=== PATIENT | female | born 1940 | race African-American/Black ===

== ENCOUNTER 2016-10-29 09:17 | Inpatient (IN) ==
[2016-10-29] MEDS ORDERED: DUONEB (A & A) ONE (10:02)
[2016-10-29] MEDS ORDERED: DUONEB (A & A) INH ONE (10:11)
[2016-10-29 10:16] LABS: BE 4.2 mmoll (-3.0-3.0); BLOOD TYPE ARTERIAL; DRAW SITE R RADIAL; METHB 1.3 % (0.0-1.5); O2(CT) 14.7 mL/dL (15.0-23.0); PCO2(98.6) 23 mmHg (35-45); SAMPLE BLOOD; SAO2 93.1 % (95.0-100.0); THB 11.6 g/dL (11.5-17.4)
[2016-10-29 10:20] LABS: ALLEN TEST YES; MODALITY ROOM AIR
[2016-10-29 10:21] LABS: PO2(98.6) 48 mmHg (60-100); pH(98.6) 7.63 (7.35-7.45)
--- NOTE | 2016-10-29 10:23 | PROVIDER DOCUMENTATION ---
HPI-Respiratory General - General Chief Complaint: Shortness of Breath Stated Complaint: CONGESTION,NO APPETITIE Time Seen by Provider: 10/29/16 10:00 Allergies/Adverse Reactions: Patient Allergies Allergy/AdvReac Type Severity Reaction Status Date / Time No Known Allergies Allergy Verified 10/29/16 09:31 Home Medications: Home Medication List Medication Instructions Recorded Confirmed Last Taken Type Montelukast [Singulair] 10 mg PO DAILY 04/11/12 05/21/16 05/20/16 08:00 History Theophylline Anhydrous 400 mg PO QAM 04/11/12 05/21/16 05/21/16 05:00 History [Theophylline] Levothyroxine [Synthroid] 50 microgm PO DAILY 06/09/13 05/21/16 05/21/16 05:00 History Meclizine HCl 12.5 mg PO TID PRN 08/02/14 05/21/16 05/20/16 21:00 History Diltiazem HCl [Cartia Xt] 240 mg PO DAILY 10/02/14 05/21/16 05/21/16 05:00 History Spironolactone 25 mg PO DAILY 10/02/14 05/21/16 05/21/16 05:00 History Furosemide 40 mg PO DAILY 03/21/15 05/21/16 05/21/16 05:00 History Calcium Carbonate/Vitamin D3 1 each PO DAILY 05/18/16 05/21/16 05/21/16 05:00 History [Calcium 600 + Vit D Tablet] Diclofenac Sodium 50 mg PO BID 05/18/16 05/21/16 05/20/16 21:00 History LISINOpril [Prinivil] 20 mg PO DAILY 05/18/16 05/21/16 05/20/16 08:00 History Multivit-Min/FA/Lycopen/Lutein 1 tab PO DAILY 05/18/16 05/21/16 05/20/16 08:00 History [Centrum Silver Tablet] Theophylline E.r. [Getachew-24] 200 mg PO HS 05/18/16 05/21/16 05/20/16 21:00 History - History of Present Illness-Resp Nature of Presenting Problem: 76 YO BF with recent hx of knee replacement surgery in August presents with increasing SOB and low appetite. Saw her PCM on Tuesday, started on Brio inhaler but hasn't gotten better. Has bilateral leg swelling from CHF but son says it is improved today. Hasn't taken any of her medication today, just came to the ER. Says she hasn't eaten barely anything in a month, only drinks water to take her medication. Has lost #30 since her surgery at the end of August. Quality of Pain: reports: pressure, tightness Severity in ED: reports: moderate Onset/Duration: reports: 1 week ago Timing: reports: still present, getting worse Cough Quality/Degree: reports: moderate, productive cough, sputum Episode Frequency: frequent episodes Current Respiratory Medication Therapy: Initiated steroid inhaler, Initiated theophylline, Initiated singulair Modifying Factors: improves with: antibiotics, rest, sitting upright Associated Symptoms: reports: cough, shortness of breath. denies: chest pain/ soreness, dizziness, earache, facial pain, fever/chills, headache, heart racing , muscle/bodyaches, nasal congestion, sore throat, sweaty, wheezing Similar Symptoms Previously?: Yes Recently seen or treated by another doctor?: Yes (Saw PCM on Tuesday) Review of Systems - Adult - REVIEW OF SYSTEMS - ADULT Constitutional: denies: chills, fever Eyes: denies: decreased vision, blurred vision, double vision Ears, Nose, Mouth & Throat: denies: ear pain, epistaxis, sinus problem, throat pain, throat swelling Cardiovascular: reports: orthopnea. denies: chest pain, syncope Respiratory: reports: cough, excessive sputum production, shortness of breath. denies: wheezing Gastrointestinal: denies: abdominal pain, diarrhea, nausea, vomiting Integumentary: denies: itching, rash, skin sores/ulcer Neurological: denies: dizziness/vertigo, headache/migraines Past History - Adult - PAST MEDICAL HISTORY-ADULT Review of Records: reports: Old Records Reviewed, Nursing Assessment Review, Medications Reviewed Major Childhood Illnesses: reports: denies history Cardiovascular: reports: CHF, HTN Respiratory: reports: asthma, COPD Musculoskeletal: reports: arthritis, other (gout) Neurological: reports: other (vertigo) Endocrine/Immune: reports: thyroid disorder - PRIOR SURGERIES/PROCEDURES Surgical/Procedure History: reports: recent surgery (pacemaker), pacemaker, hysterectomy, other (cataract removal) - PRIOR HOSPITALIZATIONS Prior Hospitalizations: reports: none - IMMUNIZATION STATUS Childhood Immunizations: See Nurse Assessment Flu Vaccine: UTD - FAMILY HISTORY Family History: reviewed, not pertinent Physical Exam-General - PHYSICAL EXAM-ADULT Initial Vital Signs Reviewed: Yes - CONSTITUTIONAL General Appearance: alert, moderate distress - EYES Eyes: PERRL/EOMI, pink conjunctivae. negative: sclera injected, scleral icterus - HEAD, EARS, NOSE, MOUTH & THROAT HENMT: normocephalic/atraumatic, other (dry mucous membranes but is spitting up clear mucus) - NECK Neck: full range of motion, supple, normal inspection - RESPIRATORY Respiratory: lungs clear, normal breath sounds, no respiratory distress, no accessory muscle use. negative: crackles, rales, rhonchi, stridor, wheezing - CARDIOVASCULAR Cardiovascular: regular rate, rhythm, no gallop, no JVD, no murmur. negative: no edema (bilateral lower leg edema, 1+ pitting left leg) - GASTROINTESTINAL (ABDOMEN) Abdominal Exam: normal bowel sounds, non tender, soft. negative: distended, guarding, rigid, rebound, tenderness - MUSCULOSKELETAL Extremity: non-tender. negative: no pedal edema Peripheral Pulses: radial (R): 2+, radial (L): 2+, dorsalis-pedis (R): 2+, dorsalis-pedis (L): 2+ - SKIN Integumentary: normal color, warm/dry - NEUROLOGIC Neurologic: community health nursing director II-XII nml as tested, grossly normal - PSYCHIATRIC Psych/Mental Status: normal mood/affect, normal thought content, normal thought process Progress - PLAN OF CARE/RESULTS Progress/Plan/Lab Results: Vital Signs - 8 hr 10/29/16 09:19 10/29/16 10:11 10/29/16 10:25 Pulse Rate 121 H 128 H Respiratory Rate 26 H 38 H Blood Pressure 144/81 O2 Sat by Pulse Oximetry 99 97 10/29/16 11:25 10/29/16 12:15 10/29/16 15:18 Pulse Rate 126 H 119 H 110 H Respiratory Rate 22 29 H 25 H Blood Pressure 149/95 147/86 149/89 O2 Sat by Pulse Oximetry 96 96 97 10/29/16 16:22 Pulse Rate 109 H Respiratory Rate 18 Blood Pressure 165/95 O2 Sat by Pulse Oximetry 96 Laboratory Results - last 24 hr 10/29/16 10/29/16 10/29/16 09:45 10:28 10:28 WBC 3.85 L RBC 4.53 Hgb 11.4 L Hct 37.2 MCV 82.1 MCH 25.2 L MCHC 30.6 L RDW Std Deviation 17.7 H Plt Count 368 MPV 11.3 H Immature Gran % (Auto) 0.5 Neut % (Auto) 58.2 Lymph % (Auto) 20.5 Wood % (Auto) 19.0 H Eos % (Auto) 0.8 Baso % (Auto) 1.0 H Immature Gran # (Auto) 0.02 Neut # (Auto) 2.24 Lymph # (Auto) 0.79 L Wood # (Auto) 0.73 H Eos # (Auto) 0.03 Baso # (Auto) 0.04 D-Dimer Specimen Type ARTERIAL Sample Site R RADIAL pH 7.63 H* pCO2 23 L pO2 48 L* HCO3 28.0 H Base Excess 4.2 H Oxyhemoglobin 90.0 L ABG O2 Sat (Calculated) 14.7 L ABG O2 Saturation 93.1 L ABG Carboxyhemoglobin 2.00 ABG Methemoglobin 1.3 Duglas Test YES A-a O2 Difference 73.0 Total Hemoglobin 11.6 Lactate 2.00 Blood Gas Modality ROOM AIR FiO2 % 21.0 Sodium 139 Potassium 2.8 L Chloride 101 Carbon Dioxide 21 L Anion Gap 16 BUN 14 Creatinine 1.3 H Estimated GFR/1.73 m2 40 BUN/Creatinine Ratio 11 Glucose 111 H Calculated Osmolality 279 Calcium 10.5 H Total Bilirubin 0.40 AST 16 ALT 8 L Alkaline Phosphatase 96 Kfs-X-Eyunfprchka Pept Total Protein 7.6 Albumin 4.2 Globulin 3.0 Albumin/Globulin Ratio 1.0 10/29/16 10/29/16 10/29/16 10:28 10:28 15:30 WBC RBC Hgb Hct MCV MCH MCHC RDW Std Deviation Plt Count MPV Immature Gran % (Auto) Neut % (Auto) Lymph % (Auto) Wood % (Auto) Eos % (Auto) Baso % (Auto) Immature Gran # (Auto) Neut # (Auto) Lymph # (Auto) Wood # (Auto) Eos # (Auto) Baso # (Auto) D-Dimer 1.96 H Specimen Type Sample Site pH pCO2 pO2 HCO3 Base Excess Oxyhemoglobin ABG O2 Sat (Calculated) ABG O2 Saturation ABG Carboxyhemoglobin ABG Methemoglobin Duglas Test A-a O2 Difference Total Hemoglobin Lactate Blood Gas Modality FiO2 % Sodium 141 Potassium 3.3 L D Chloride 105 Carbon Dioxide 23 L Anion Gap 13 BUN 12 Creatinine 1.2 H Estimated GFR/1.73 m2 44 BUN/Creatinine Ratio 10 Glucose 95 Calculated Osmolality 281 Calcium 9.9 Total Bilirubin 0.30 AST 13 ALT 7 L Alkaline Phosphatase 89 Mcj-J-Enofbohcxed Pept 136 Total Protein 6.9 Albumin 3.9 Globulin 3.0 Albumin/Globulin Ratio 1.0 Orders Category Date Time Status CHEST-PORTABLE [RAD] Stat Exams 10/29/16 10:14 Completed LUNG SCAN / VQ [NM] Stat Exams 10/29/16 11:15 Completed ABG [RESP] Routine Lab 10/29/16 09:45 Completed CBC WITH DIFF [HEME] Stat Lab 10/29/16 10:28 Completed CMP [COMPREHENSIVE METABOLIC PANEL] [CHEM] Stat Lab 10/29/16 15:30 Completed COMPREHENSIVE METABOLIC PANEL [CHEM] Stat Lab 10/29/16 10:28 Completed Ddimer [D-DIMER PL] [COAG] Stat Lab 10/29/16 10:28 Completed UA NIMS W/REFLEX CULT PL [URINALYSIS] Stat Lab 10/29/16 16:13 Ordered pro-bnp [PRO B-NATRIURETIC PEPTIDE] Stat Lab 10/29/16 10:28 Completed 0.9% Sodium Chloride Inj [Ns] 1,000 ml Med 10/29/16 11:15 Discontinued IV 999 mls/hr Albuterol 2.5MG/Ipratrop 0.5MG [Duoneb (A & A)] Med 10/29/16 10:02 Discontinued 3 ml .ROUTE .STK-MED ONE Albuterol 2.5MG/Ipratrop 0.5MG [Duoneb (A & A)] Med 10/29/16 10:11 Discontinued 3 ml INH NOW ONE Hydrocodone/APAP 7.5 mg/325 mg [[place]-7.5] Med 10/29/16 12:24 Discontinued 1 each PO NOW ONE Potassium Chloride E.r. [Klor-Con] Med 10/29/16 11:14 Discontinued 60 meq PO NOW ONE Aerosol Treatments Stat Oth 10/29/16 10:11 Completed Oxygen Device Urgent Oth 10/29/16 10:24 Completed Venous U/S Bilateral Legs Stat Ther 10/29/16 11:15 Completed Result Diagrams: 07/14/17 10:28 10/29/16 15:30 - REASSESSMENT Reassessment #1 Time Reassessed: 11:17 (Pt has low K+, will give oral potassium. Also has elevated Cr, hasn't had much fluids recently. Low GFR. Elevated D Dimer. Discussed with Dr Curry, recommends bilateral leg venous doppler and VQ scan as renal function is impaired. ) Reassessment #2 Time Reassessed: 13:02 (NEG Bilat DVT. Pt was feeling nauseous and having pain in her leg that she had knee replacement. ) Reassessment #3 Time Reassessed: 16:35 (Discussed with Dr. Curry, as pt has kypokalemia, SOB, alkalosis, poor intake. Discussed with pt and family. ) - CONSULTS/PCP/HOSPITALIST Notification #1 *Consult/PCP/Hospitalist*: Dr. Mcfarlane Time Discussed: 16:33 (For SOB, CHF, poor fluid/food intake, weight loss) Consult Disposition: Will see in ED, Admit Departure - Departure Date of Disposition Decision: 10/29/16 Time of Disposition Decision: 16:33 DIAGNOSIS: Shortness of breath, Poor fluid intake, Elevated d-dimer, Hypokalemia CHF (congestive heart failure) Qualifiers: Congestive heart failure type: unspecified congestive heart failure type Congestive heart failure chronicity: chronic Qualified Code(s): I50.9 - Heart failure, unspecified Disposition: ADMITTED INPATIENT 09 Certified Medical Emergency: Emergent Condition: Stable Referrals and Follow-Ups: Elias Whitmore [Primary Care Provider] - - Critical Care Note This patient required my direct & personal management of CC.: No Attestation - Physician/ RADHA Attestation Patient care was provided by Advanced Practice Provider:: Yes Advanced Practice Provider:: Yuniel Sánchez Advanced Practice Provider documentation review:: The Mid-level provider documentation, treatment plan and medical decision making was reviewed by the physician who agrees with all treatment and medical decision making by the MLP.
--- NOTE | 2016-10-29 10:28 | Diag Imaging Result Doc PS360 ---
EXAM: CHEST-PORTABLE HISTORY: SOB, hx CHF, recent surgery TECHNIQUE: Erect AP portable chest at 1012 COMMENT: There is fibrosis near the minor fissure on the right which has not changed since 05/18/2016. There is some apparent subsegmental platelike atelectasis over the lingula which is more conspicuous than on the previous study. Otherwise has been no significant change. IMPRESSION: Minimal subsegmental atelectasis. Electronically signed by Juan Luo 10/29/2016 10:26 AM
[2016-10-29 10:30] LABS: MANUAL DIFF NEEDED? NO
[2016-10-29 10:41] LABS: EOS# 0.03 X1000 (0.0-0.7); EOS% 0.8 % (0.0-10.0); HEMATOCRIT 37.2 % (37.0-47.0); HEMOGLOBIN 11.4 g/dL (12.0-16.0); IMM GRAN# 0.02 X1000 (0.0-0.04); IMM GRAN% 0.5 % (0.0-0.5); LYMPH# 0.79 X1000 (1.2-3.4); LYMPH% 20.5 % (20.5-51.1); MCH 25.2 PG (27-31); MCHC 30.6 g/dL (33-37); MCV 82.1 FL (81-99); MONO# 0.73 X1000 (0.11-0.59); MPV 11.3 FL (7.4-10.4); NEUT% 58.2 % (42.2-75.2); PLT 368 X1000 (130-400); RBC 4.53 XMIL (4.2-5.4)
[2016-10-29 11:05] LABS: ALBUMIN 4.2 g/dL (3.5-5.0); CALCIUM 10.5 mg/dL (8.8-10.2); POTASSIUM 2.8 mmol/L (3.5-5.1); TOTAL BILIRUBIN 0.4 mg/dL (0.20-1.00); TOTAL PROTEIN 7.6 g/dL (6.3-8.3)
[2016-10-29] MEDS ORDERED: KLOR-CON PO ONE (11:14)
[2016-10-29] MEDS ORDERED: NS 1,000 ML IV ONE (11:15)
[2016-10-29] MEDS ORDERED: NORCO-7.5 PO ONE (12:24)
--- NOTE | 2016-10-29 12:27 | Extremity Venous Study ---
EXAM: Venous U/S Bilateral Legs HISTORY: elevated d dimer, SOB TECHNIQUE: Compression venous ultrasound of the lower extremities with color Doppler COMMENT: The deep veins of both lower extremities are compressible and demonstrate color Doppler flow with augmentation. IMPRESSION: No evidence of deep venous thrombosis. Electronically signed by Juan Luo 10/29/2016 12:25 PM
[2016-10-29 15:54] LABS: ALBUMIN 3.9 g/dL (3.5-5.0); CALCIUM 9.9 mg/dL (8.8-10.2); POTASSIUM 3.3 mmol/L (3.5-5.1); TOTAL BILIRUBIN 0.3 mg/dL (0.20-1.00); TOTAL PROTEIN 6.9 g/dL (6.3-8.3)
--- NOTE | 2016-10-29 16:02 | Diag Imaging Result Doc PS360 ---
EXAM: LUNG SCAN / VQ HISTORY: elevated d dimer, SOB, leg swelling, elevated Cr TECHNIQUE: Ventilation/perfusion lung scan: 41.2 mCi of technetium 99m DTPA aerosol for the ventilation portion of the procedure and 6.1 mCi of technetium 99m MAA intravenously for the perfusion portion. COMMENT: There is no evidence of ventilation/perfusion mismatch. There are no absolute perfusion defects. IMPRESSION: Normal study. Electronically signed by Juan Luo 10/29/2016 4:00 PM
[2016-10-29] MEDS ORDERED: DUONEB (A & A) INH PRN (18:33)
[2016-10-29] MEDS ORDERED: ZOFRAN IV PRN (18:33)
[2016-10-29] MEDS: ROCEPHIN 1 GM/NS 1 GM/50 ML IVPB IV SCH (19:05)
[2016-10-29] MEDS: NS 1,000 ML IV SCH (19:05)
[2016-10-29] MEDS: TYLENOL PO PRN (19:26)
[2016-10-29] MEDS: SOLU-MEDROL IV SCH (19:26)
[2016-10-29] MEDS: DUONEB (A & A) INH SCH ×2 (19:34→23:05)
[2016-10-30 00:43] LABS: CLARITY CLEAR (CLEAR); COLOR YELLOW; URINE SOURCE CLEAN CATCH
[2016-10-30 00:44] LABS: BILIRUBIN URINE NEGATIVE (NEGATIVE); BLOOD URINE NEGATIVE (NEGATIVE); GLUCOSE URINE NEGATIVE (NEGATIVE)
[2016-10-30 00:45] LABS: LEUKOCYTES URINE 2+ (NEGATIVE); NITRITE URINE NEGATIVE (NEGATIVE); PROTEIN URINE TRACE mg/dL (NEGATIVE); UROBILINOGEN URINE NORMAL
[2016-10-30 00:47] LABS: URINE CULTURE PL NEEDED? YES; URINE EPITHELIAL CELLS <10 /HPF (<10); URINE RBC <10 /HPF (<10)
[2016-10-30] MEDS: TYLENOL PO PRN (01:28)
[2016-10-30] MEDS: SOLU-MEDROL IV SCH ×3 (02:09→18:40)
[2016-10-30] MEDS: DUONEB (A & A) INH SCH ×6 (02:37→22:59)
[2016-10-30 06:12] LABS: HEMATOCRIT 37.8 % (37.0-47.0); HEMOGLOBIN 11.4 g/dL (12.0-16.0); MCH 25.2 PG (27-31); MCHC 30.2 g/dL (33-37); MCV 83.6 FL (81-99); MPV 11.1 FL (7.4-10.4); RBC 4.52 XMIL (4.2-5.4)
[2016-10-30 06:42] LABS: CALCIUM 10.2 mg/dL (8.8-10.2); MAGNESIUM 1.8 mg/dL (1.5-2.7); TOTAL BILIRUBIN 0.3 mg/dL (0.20-1.00); TOTAL PROTEIN 7.3 g/dL (6.3-8.3)
[2016-10-30] MEDS: NS 1,000 ML IV SCH ×3 (08:19→21:12)
[2016-10-30] MEDS ORDERED: MILK OF MAGNESIA PO PRN (09:44)
[2016-10-30] MEDS ORDERED: CARDIZEM CD PO SCH (09:45)
[2016-10-30] MEDS ORDERED: SYNTHROID PO SCH (09:45)
[2016-10-30] MEDS: PRINIVIL PO SCH (10:22)
[2016-10-30] MEDS: ELIQUIS PO SCH ×2 (10:22→21:08)
[2016-10-30] MEDS: PRILOSEC PO SCH ×2 (10:22→21:09)
[2016-10-30] MEDS: THEO-DUR PO SCH ×2 (10:23→21:09)
[2016-10-30] MEDS: ULTRAM PO PRN ×2 (10:23→16:27)
[2016-10-30] MEDS: ZYLOPRIM PO SCH (10:24)
[2016-10-30] MEDS ORDERED: CARDIZEM CD PO ONE (11:15)
--- NOTE | 2016-10-30 12:01 | PROGRESS NOTE ---
DATE: 10/30/2016 SUBJECTIVE: Patient states that she is starting to feel a little bit better. She started to eat a little bit more this morning. Denies any chest pain or palpitations. Denies any GI or issues otherwise. OBJECTIVE: Vital Signs: Temperature 98.0 degrees, pulse 118 to 101, respiratory rate 18, blood pressure 154/78, and saturation 96% on 2L. General: Patient is awake, alert, and currently in no real respiratory distress. She is pleasant to talk with. Neck: Supple. Cardiovascular: Tachycardia. No appreciable murmurs. Chest: Clear. Abdomen: Soft. Extremities: Moves all extremities. Neurologic: No changes. ASSESSMENT: 1. Atrial fibrillation with rapid ventricular response. We will increase her diltiazem to 360. 2. Adult failure to thrive. 3. Hypothyroidism 4. Hypertension. PLAN: We will continue IV fluids today. We will continue to follow. Continue her on Rocephin, as she certainly could have a urinary tract infection that may be causing all of her failure to thrive and inability to eat. We will continue to encourage p.o. Further orders as needed. cc: Amari Johnson MD
[2016-10-30] MEDS: CARAFATE PO SCH ×3 (12:30→21:08)
--- NOTE | 2016-10-30 13:12 | HISTORY AND PHYSICAL ---
PRIMARY CARE PHYSICIAN: Dr. Elias Whitmore. CHIEF COMPLAINT: Congestion in my throat and I can not eat. HISTORY OF PRESENT ILLNESS: This is a 76-year-old female who presented to the emergency room complaining of increasing shortness of breath with chest congestion and no appetite. She states that this began after having a knee replacement at the end of August and she reportedly has lost 30 pounds since. She states that she has no appetite and that most solid foods come back up shortly after eating them so she just does not eat. She also states that she has some lower extremity edema that has been persistent. She developed a cough and dyspnea on exertion. She saw her primary care physician on Tuesday and was diagnosed with an upper respiratory infection and given amoxicillin. She has seen no change in symptoms. PAST MEDICAL HISTORY: Hypothyroid, hypertension, tachy-ronald syndrome status post pacemaker placement, hypothyroid. PAST SURGICAL HISTORY: Pacemaker placement, knee replacement. SOCIAL HISTORY: She denies alcohol, tobacco, or illicit drug use. ALLERGIES: No known drug allergies. HOME MEDICATIONS: A list will be obtained. REVIEW OF SYSTEMS: A 14 point review of systems is discussed with patient with pertinent positives stated in the HPI. She denied chest pain, palpitations, dizziness, syncope, PND, orthopnea, subjective fevers, chills, nausea, diarrhea, constipation, black or bloody vomitus, black or bloody stools, hematuria, dysuria. PHYSICAL EXAMINATION: GENERAL: This is a 76-year-old female who is sitting up in the bed, in no distress. VITAL SIGNS: Blood pressure is 154/70, with a heart rate of 101, respirations are 18, temperature is 98.6 degrees, with O2 saturations of 99% on 2 L nasal cannula. HEENT: Head is normocephalic, atraumatic. Pupils equal, round, react to light. EOMs are intact. Sclerae anicteric. Mucous membranes are moist. NECK: Supple. Trachea midline. CARDIOVASCULAR: Regular rate and rhythm. S1 and S2 are appreciated. No obvious murmur or gallop. GASTROINTESTINAL: Abdomen is soft, nontender, nondistended with bowel sounds in all 4 quadrants. EXTREMITIES: She does have nonpitting edema in bilateral lower extremities which is chronic. Calves are nontender. Pulses are palpable x4. NEUROLOGIC: She is alert and oriented x3. DIAGNOSTICS: 1. WBC is 3.8, with a hemoglobin of 11.4, hematocrit 37.2, and platelets of 368,000. D-dimer is 1.96. Sodium is 141, potassium 3.3, BUN is 12, with creatinine 1.2. Glucose is 95. 2. Lower extremity Doppler revealed no evidence of DVT. 3. V/Q lung scan revealed no evidence of ventilation-perfusion mismatch. There no absolute perfusion defects. ASSESSMENT AND PLAN: 1. Persistent cough. 2. Vomiting with weight loss, chronic. 3. Recent upper respiratory infection; failed outpatient treatment. 4. Hypokalemia. 5. Elevated D-dimer. 6. Hypothyroid. 7. History of hypertension. PLAN: She will be admitted to the hospital. Placed on telemetry. We will identify her home medications and continue as appropriate. We will use Rocephin IV every 24 hours. The patient states that she has significant reflux over the last 2-3 months lying down, having a bitter taste in her mouth, needing to cough and clear her throat. This also increases if she lies down shortly after eating. We will give Prilosec b.i.d., start Carafate, and have her sit up in a chair for meals and for a period after eating. DuoNeb q.4 hours with q.2 p.r.n. Further treatments pending hospital course. Dictated by SONNY Thomas for Amari Johnson MD cc: SONNY Thomas MD
[2016-10-30] MEDS ORDERED: CARDIZEM 100 MG/NS 100 MG/100 ML IVPB IV SCH (15:17)
--- NOTE | 2016-10-30 16:13 | EKG Report ---
Test Performed on : 10/30/2016 3:27:47 PM Test Reason : rhythm change Blood Pressure : / mmHG Vent. Rate : 158 BPM Atrial Rate : 109 BPM P-R Int : 202 ms QRS Dur : 146 ms QT Int : 328 ms P-R-T Axes : 068 -37 -10 degrees QTc Int : 531 ms Sinus tachycardia. with premature supraventricular complexes. and with frequent premature ventricula r complexes. Left axis deviation Right bundle branch block T wave abnormality, consider lateral ischemia Abnormal ECG When compared with ECG of 30-OCT-2016 15:26, (Unconfirmed) premature ventricular complexes. are now present premature supraventricular complexes. are now present Unconfirmed Result
[2016-10-30 17:31] LABS: CLARITY VERY CLOUDY (CLEAR); COLOR YELLOW; URINE CULTURE PL NEEDED? NO; URINE SOURCE CATH
[2016-10-30 17:32] LABS: BILIRUBIN URINE NEGATIVE (NEGATIVE); BLOOD URINE NEGATIVE (NEGATIVE); LEUKOCYTES URINE 1+ (NEGATIVE); NITRITE URINE NEGATIVE (NEGATIVE); PROTEIN URINE 1+(30 mg/dL) mg/dL (NEGATIVE); SP GRAVITY URINE 1.025; UROBILINOGEN URINE NORMAL
[2016-10-30 17:33] LABS: URINE EPITHELIAL CELLS >10 /HPF (<10); URINE RBC <10 /HPF (<10); URINE WBC <10 /HPF (<10)
[2016-10-30] MEDS: ROCEPHIN 1 GM/NS 1 GM/50 ML IVPB IV SCH (18:40)
[2016-10-30] MEDS: CARDIZEM PO SCH (21:08)
[2016-10-30] MEDS: REMERON PO SCH (21:08)
[2016-10-31] MEDS: SOLU-MEDROL IV SCH ×3 (02:25→21:26)
[2016-10-31] MEDS: CARDIZEM PO SCH ×4 (02:25→21:26)
[2016-10-31] MEDS: DUONEB (A & A) INH SCH ×6 (02:47→22:55)
[2016-10-31] MEDS: NS 1,000 ML IV SCH ×3 (05:13→17:41)
[2016-10-31] MEDS ORDERED: CARDIZEM CD PO SCH (09:00)
--- NOTE | 2016-10-31 09:13 | EKG Report ---
Test Performed on : 10/31/2016 09:05:49 AM Test Reason : arrhythmia Blood Pressure : / mmHG Vent. Rate : 092 BPM Atrial Rate : 092 BPM P-R Int : 160 ms QRS Dur : 140 ms QT Int : 400 ms P-R-T Axes : 028 -39 -17 degrees QTc Int : 494 ms Normal sinus rhythm. Left axis deviation Right bundle branch block Abnormal ECG When compared with ECG of 30-OCT-2016 15:27, (Unconfirmed) premature ventricular complexes. are no longer present premature supraventricular complexes. are no longer present Vent. rate has decreased BY 66 BPM Unconfirmed Result
[2016-10-31] MEDS: PRILOSEC PO SCH ×2 (09:28→21:25)
[2016-10-31] MEDS: CARAFATE PO SCH ×4 (09:28→21:26)
[2016-10-31] MEDS: ELIQUIS PO SCH ×2 (09:28→21:26)
[2016-10-31] MEDS: PRINIVIL PO SCH (09:29)
[2016-10-31] MEDS: SYNTHROID PO SCH (09:29)
[2016-10-31] MEDS: ZYLOPRIM PO SCH (09:29)
[2016-10-31 11:34] LABS: HEMOGLOBIN 11.1 g/dL (12.0-16.0); MCH 25.8 PG (27-31); MCHC 30.8 g/dL (33-37); MCV 83.7 FL (81-99); MPV 11.1 FL (7.4-10.4); RBC 4.3 XMIL (4.2-5.4)
[2016-10-31 11:43] LABS: CALCIUM 9.9 mg/dL (8.8-10.2); MAGNESIUM 1.9 mg/dL (1.5-2.7); POTASSIUM 3.7 mmol/L (3.5-5.1); TOTAL BILIRUBIN 0.2 mg/dL (0.20-1.00); TOTAL PROTEIN 6.6 g/dL (6.3-8.3)
--- NOTE | 2016-10-31 13:53 | PROGRESS NOTE ---
DATE: 10/31/2016 SUBJECTIVE: The patient notes that she is actually feeling a little bit better. Denies any chest pains or palpitations currently. Denies any nausea, vomiting. States that she is starting to feel as though she can eat a little bit better at this point. OBJECTIVE: Vital signs: Temperature 97, pulse 88, respiratory 20, BP 162/71, saturation 96% on 2 L. General: Patient awake, alert, oriented. She is currently in no respiratory distress. Very pleasant to talk with female. HEENT: Normocephalic, atraumatic. Neck: Supple. CV: Regular rate. Chest: Relatively clear. Abdomen: Soft. Extremities: Moves all extremities. Neurologic: No changes. LABS: Reviewed. CBC, CMP and TSH currently pending. Dysrhythmia. PLAN: The patient was noted in the ICU to have several episodes of ventricular tachycardia. Unfortunately this has not been captured on EKG, simply on a rhythm strip. We are continuing to follow. Hopefully if this is true they can capture it on a full 12 lead. Cardiology has been consulted to assist. Labs are currently pending. We will decrease her Solu-Medrol again today to q.12 and further orders as needed. Also will stop her tramadol as this certainly could be contributing to palpitations. cc: Amari Johnson MD
[2016-10-31] MEDS: THEO-DUR PO SCH ×2 (14:50→21:26)
[2016-10-31] MEDS: ROCEPHIN 1 GM/NS 1 GM/50 ML IVPB IV SCH ×2 (17:40→19:58)
[2016-10-31] MEDS: REMERON PO SCH (21:26)
[2016-11-01] MEDS: CARDIZEM PO SCH ×4 (02:06→20:25)
[2016-11-01] MEDS: DUONEB (A & A) INH SCH ×6 (02:40→22:45)
[2016-11-01] MEDS: CARAFATE PO SCH ×4 (06:37→20:25)
[2016-11-01] MEDS: NS 1,000 ML IV SCH (06:37)
[2016-11-01] MEDS: SYNTHROID PO SCH (06:37)
[2016-11-01] MEDS: PRILOSEC PO SCH ×2 (06:37→20:25)
[2016-11-01] MEDS: ELIQUIS PO SCH ×2 (09:08→20:25)
[2016-11-01] MEDS: SOLU-MEDROL IV SCH ×2 (09:08→20:26)
[2016-11-01] MEDS: THEO-DUR PO SCH ×2 (09:08→20:25)
[2016-11-01] MEDS: ZYLOPRIM PO SCH (09:08)
[2016-11-01] MEDS: PRINIVIL PO SCH (09:08)
--- NOTE | 2016-11-01 09:09 | PROGRESS NOTE ---
DATE: 11/01/2016 SUBJECTIVE: The patient notes that she is feeling much better today. She denies any chest pain, palpitations. Denies any GI or issues. States that she is starting to eat better as well. OBJECTIVE: Vital Signs: Reviewed. Temperature 97 degrees, pulse 73, respiratory 20, BP 160/74, saturation 100% on 2 L. General: Patient is awake, alert, currently in no real respiratory distress. She is pleasant to talk with. Neck: Supple. CV: Regular rate. Chest: Relatively clear, nonlabored. Abdomen: Soft. Extremities: Moves all extremities. Neurologic: No focal changes. Skin: Warm and dry. No rashes. ASSESSMENT: Patient is eating and drinking better. Cardiology has plans to have her pacemaker checked today. Hopefully she can discharge home later either today or tomorrow. We will transition her out of the ICU after her pacemaker check and continue to follow. cc: Amari Johnson MD
--- NOTE | 2016-11-01 10:16 | CONSULTATION ---
DATE OF CONSULTATION: 10/31/2016 CONSULTATION REQUESTED BY: Hospitalist Service. REASON FOR CONSULTATION: Arrhythmia, tachycardia. HISTORY: Ms. Osborn is a pleasant 76-year-old black female who is a patient of mine. She presented to the hospital at [facility] 2 days ago at about 10 a.m. in the morning, October 29, with complaints of recurrent and persistent cough associated with shortness of breath. The patient said that she had very poor appetite. She had been recuperating from a recent total knee replacement. She got really concerned about the way she was doing. Upon presentation they did a chest x-ray that showed minimal subsegmental atelectasis. They did a ventilation perfusion scan that showed no evidence of any perfusion deficits. Her blood work at the time of initial presentation showed a pH of 7.6, pCO2 of 23, pO2 was 48. Her initial sodium was 141, potassium 3.3, BUN 12, creatinine 1.2. She had an abnormal urinalysis. At any rate, the patient also received an EKG that shows activity of a pacemaker. There is a left axis deviation and right bundle branch block. The patient has been admitted to the hospital, has been placed on ceftriaxone, diltiazem, methylprednisolone, and she is doing better. She denies having any chest pain. Today they noted on her ekg monitor tech that she was having episodes of tachycardia or rapid heartbeat. The patient had noticed some episodes of palpitations at home, however, she was not bothered very much by them. On a recent report from her remote pacemaker device, they had noted what appeared to be pacemaker mediated tachycardia. PAST MEDICAL HISTORY: Her past history is positive for sick sinus syndrome. Back in July [address] [employer] Premium 2240 dual-chamber pacemaker. She had previous atrial flutter. She has had COPD/asthma. She has had a history of gout as well as osteoarthritis. PAST SURGICAL HISTORY: She has had hysterectomy, a cyst removed from the leg, and the pacemaker implantation in July 2014. SOCIAL HISTORY: She is a , retired. She has 2 children. She does not smoke or drink. FAMILY HISTORY: Coronary heart disease in some relatives. HOME MEDICATIONS: Home medications at the time of this admission included: 1. Levothyroxine 50 mcg daily. 2. Mirtazapine 30 mg at bedtime. 3. Meclizine 12.5 three times a day. 4. Allopurinol 300 mg daily. 5. Diltiazem 240 mg daily. 6. Lisinopril 20 mg daily. 7. Theophylline 300 twice a day. 8. Montelukast 10 mg daily. 9. Magnesium hydroxide 30 mL as needed. ALLERGIES: She reports no allergies. REVIEW OF SYSTEMS: The patient has just undergone total right knee replacement during the month of August in [facility] under Dr. Manuelito Sandhu. The patient went to rehab and she had a relatively uneventful recovery although, during the time when she was recuperating, she had no appetite and she has lost about 20 pounds over the past 2 months. Otherwise, nothing significant. PHYSICAL EXAMINATION: Vital signs: Blood pressure 162/71, temperature 97.2, pulse 82, respirations 21. General: She is awake, alert, in no distress. HEENT: Unremarkable. Chest: Sounds clear to auscultation and percussion. Cardiac: Heart sounds are regular and rhythmic. No gallop or murmur is noted. Abdomen: Nontender, soft, no masses, no hepatomegaly. Extremities: Show good pulses. There is trace brawny edema in the right leg with some dystrophic skin changes probably related to chronic venous stasis dermatitis. Neurologic: She is awake, alert and oriented x3. Moves four extremities. Follows commands. IMPRESSION: 1. Patient who presented with increasing cough, dyspnea, probably related to bronchitis on top of COPD, probably some component of COPD exacerbation. 2. Sick sinus syndrome status post permanent pacemaker implantation in July of 2014, [employer] device. 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 3. History of arthritis status post right total knee replacement recently, 2 months ago. 4. Patient with a history of being morbidly obese, hypothyroidism, and history of venous insufficiency. 5. She has history of hypertension and she has had an abnormal EKG with sinus rhythm, right bundle branch block, and a left anterior fascicular block. RECOMMENDATIONS: At this point in time, from the cardiology viewpoint, the patient seems to be stable. The arrhythmia is generally a nuisance and we will try to correct that by changing the settings of the pacemaker. We will contact the [employer] credit resolution representative in the morning and ask him to come to change the settings of her pacemaker. That should probably take care of the arrhythmia. In the meantime, I agree with giving her Cardizem. She was taking 240 when I saw her 2 months ago at the office. Otherwise, no specific changes. Thank you for the opportunity to participate in her evaluation. cc: Tae Davenport MD
[2016-11-01] MEDS: ROCEPHIN 1 GM/NS 1 GM/50 ML IVPB IV SCH (17:56)
[2016-11-01] MEDS: REMERON PO SCH (20:25)
[2016-11-02] MEDS: CARDIZEM PO SCH ×3 (02:36→14:07)
[2016-11-02] MEDS: DUONEB (A & A) INH SCH ×5 (02:39→19:00)
[2016-11-02] MEDS: SYNTHROID PO SCH (06:33)
[2016-11-02] MEDS: CARAFATE PO SCH ×3 (06:33→15:26)
[2016-11-02] MEDS: PRILOSEC PO SCH (06:33)
[2016-11-02] MEDS: ZYLOPRIM PO SCH (08:15)
[2016-11-02] MEDS: PRINIVIL PO SCH (08:16)
[2016-11-02] MEDS: ELIQUIS PO SCH (08:16)
[2016-11-02] MEDS: THEO-DUR PO SCH (08:16)
[2016-11-02] MEDS: SOLU-MEDROL IV SCH (10:05)
[2016-11-02 19:29] VITALS: BP 123/68
--- NOTE | 2016-11-03 11:34 | DISCHARGE SUMMARY ---
ADMISSION DATE: 10/29/2016 DISCHARGE DATE: 11/02/2016 DISCHARGE DIAGNOSES: 1. Chronic obstructive pulmonary disease exacerbation. 2. Arrhythmias associated with history of sick sinus syndrome. 3. Hypothyroidism. 4. Arthritis. 5. Hypertension. HISTORY AND HOSPITAL COURSE: Briefly, refer to complete H P dictated on the . She was admitted per Dr. Johnson with what was felt to be a COPD exacerbation. She was placed on Rocephin. She slowly clinically improved. Maintained on fluids. She did have atrial fibrillation with rapid ventricular response. She had been placed on Cardizem which was increased from 240 initially to 360 actually. Cardiology was consulted on the . She had episodes of ventricular tachycardia that was on a rhythm strip but not the EKG. Cardiology evaluated her and they just recommended maintaining on her regular Cardizem dose. She had been on 240 previously. They interrogated the pacemaker which I think was okay; there was no major issue. They just recommended continuing her Cardizem. She has been getting Cardizem 30 q.6 which is 120 daily and that is it. They had recommended going up to 360 but I guess the dose was adjusted. In any case, I just recommended going home on her regular dose of 240 daily. DISCHARGE MEDICATIONS: Allopurinol 300 daily, Apixaban 2.5 b.i.d., Caltrate 50 daily, Omnicef 300 p.o. b.i.d. for 7 days, Cartia XT 240 daily, Breo 100 daily, Lasix 40 p.r.n., Synthroid 50 daily, lisinopril 20 daily, milk of magnesia, Antivert 12.5 t.i.d., Remeron 30 at bedtime, Singulair 10 daily, MiraLAX 17 daily, prednisone taper, [place]w-Dur 300 daily, and Ultram p.r.n. DISCHARGE CONDITION: Stable. FOLLOW-UP: She will need to follow up with her PCP, Dr. Whitmore in 1 week, [facility]6 [facility], Dr. Davenport or her covering convention services manager. TIME SPENT: 35 minute discharge. cc: Lew Bhatt MD
== END 2016-11-02 20:45 | disposition home health service (06) ==
LOC: P.ED 09:17 → SUATTDRO 17:17 → P.MEDSURG 17:17 → P.ICU 10-30 15:15
PROVIDERS: ATTEND Internal Medicine

== ENCOUNTER 2018-09-22 10:30 | Inpatient (IN) ==
--- NOTE | 2018-09-22 11:12 | PROVIDER DOCUMENTATION ---
HPI-General Adult - General Chief Complaint: Weakness Stated Complaint: weakness Time Seen by Provider: 09/22/18 10:45 Source: patient Allergies/Adverse Reactions: Patient Allergies Allergy/AdvReac Type Severity Reaction Status Date / Time No Known Allergies Allergy Verified 09/14/18 19:26 Home Medications: Home Medication List Medication Instructions Recorded Confirmed Last Taken Type Montelukast [Singulair] 10 mg PO DAILY 04/11/12 02/09/18 05/20/16 08:00 History Levothyroxine [Synthroid] 50 microgm PO DAILY@0700 06/09/13 02/09/18 05/21/16 05:00 History Allopurinol [Zyloprim] 300 mg PO DAILY 10/29/16 02/09/18 10/28/16 08:00 History Meclizine [Antivert] 12.5 mg PO TID PRN 10/29/16 02/09/18 10/28/16 08:00 History Dabigatran [Pradaxa] 75 mg PO BID 01/22/18 02/09/18 Unknown History Diclofenac Sodium 1 applicatn TOP TID PRN PRN 01/22/18 02/09/18 Unknown History Diltiazem HCl [Cartia Xt] 240 mg PO DAILY 01/22/18 02/09/18 Unknown History Iron,Carbonyl/Ascorbic Acid [Iron 100 mg PO DAILY 01/22/18 02/09/18 Unknown History 100-Vitamin C Tablet] Potassium Chloride E.r. [Klor-Con] 20 meq PO DAILY PRN 01/22/18 02/09/18 Unknown History Fluconazole [Diflucan] 100 mg PO DAILY tablet 01/29/18 02/09/18 Unknown Rx Furosemide [Lasix] 40 mg PO BID tablet 01/29/18 02/09/18 Unknown Rx Polyethylene Glycol 3350 [Miralax] 17 gm PO DAILY powder, packet 01/29/18 02/09/18 Unknown Rx Acetaminophen [Tylenol] 650 mg PO Q6H PRN PRN tablet 01/30/18 02/09/18 Unknown Rx Albuterol 2.5MG/Ipratrop 0.5MG 3 ml INH Q4H PRN PRN neb 01/30/18 02/09/18 Unknown Rx [Duoneb (A & A)] Aspirin 81 mg PO DAILY chewtab 01/30/18 02/09/18 Unknown Rx Pantoprazole [Protonix] 40 mg PO HS tablet 01/30/18 02/09/18 Unknown Rx Amoxicillin/Pot Clavulanate 875 mg PO Q12HR #14 tab 02/14/18 Unknown Rx [Augmentin] Hydrocodone/Acetaminophen [[place] 1 tab PO Q6H PRN #30 tab 02/14/18 Unknown Rx 5-325 Tablet] Tizanidine [Zanaflex] 4 mg PO BID tablet 02/14/18 Unknown Rx Hydrocodone/Acetaminophen [[place] 1 ea PO Q6H PRN PRN #12 tab 07/31/18 Unknown Rx 5-325 Tablet] Ondansetron Odt [Zofran Odt] 4 mg PO Q6H PRN PRN #15 tab 07/31/18 Unknown Rx Levofloxacin [Levaquin] 750 mg PO DAILY #7 tab 09/14/18 Unknown Rx Cyproheptadine [Periactin] 4 mg PO TID AC #30 tab 09/20/18 Unknown Rx - History of Present Illness -Gen Adult Nature of Presenting Problems: [id number] presents to the ER with C/O generalized weakness and decreased appetite x 3 weeks. She was previously seen 2 days ago in the ED and released. Family states she had a doctors appt this morning with her PCP but was so weak she couldn't walk. So, they called EMS to bring her here. Onset/Duration: reports: gradual, other (over a period of 3 months) Review of Systems - Adult - REVIEW OF SYSTEMS - ADULT Constitutional: reports: see HPI. denies: chills, fever, fatique, night sweats Eyes: reports: no symptoms reported. denies: discharge, decreased vision, blurred vision, double vision Ears, Nose, Mouth & Throat: reports: no symptoms reported. denies: ear discharge, ear pain, epistaxis Cardiovascular: reports: no symptoms reported. denies: chest pain, heart murmur, palpitations, syncope Respiratory: reports: no symptoms reported. denies: chronic cough, dyspnea on exertion, shortness of breath, wheezing Gastrointestinal: reports: no symptoms reported. denies: abdominal pain, diarrhea, poor appetite Genitourinary: reports: frequency, incontinence, urinary retention Musculoskeletal: reports: see HPI, muscle weakness Integumentary: reports: no symptoms reported Neurological: reports: no symptoms reported. denies: dizziness/vertigo, headache/migraines, loss of balance, seizure Psychiatric: reports: no symptoms reported. denies: anxiety, depression Endocrine: reports: no symptoms reported Hematologic/Lymphatic: reports: no symptoms reported Allergic/Immunologic: reports: no symptoms reported All Other Systems: Reviewed and Negative Past History - Adult - PAST MEDICAL HISTORY-ADULT Review of Records: reports: Old Records Reviewed, Nursing Assessment Review, Medications Reviewed, Social history reviewed & non-contributory. Major Childhood Illnesses: reports: denies history Cardiovascular: reports: CHF, HTN, pacemaker Respiratory: reports: asthma, COPD Gastrointestinal: reports: denies history Obstetrical/Gynecological: reports: denies history Genitourinary: reports: denies history Musculoskeletal: reports: arthritis, other (gout) Neurological: reports: other (vertigo) Endocrine/Immune: reports: thyroid disorder Other Conditions: reports: denies history - PRIOR SURGERIES/PROCEDURES Surgical/Procedure History: reports: pacemaker, hysterectomy, joint replacement (right knee), other (cataract removal) - PRIOR HOSPITALIZATIONS Prior Hospitalizations: reports: none - IMMUNIZATION STATUS Childhood Immunizations: See Nurse Assessment Flu Vaccine: UTD - FAMILY HISTORY Family History: reviewed, not pertinent Physical Exam-General - PHYSICAL EXAM-ADULT Initial Vital Signs Reviewed: Yes - CONSTITUTIONAL General Appearance: alert, no apparent distress, cachetic - EYES Eyes: PERRL/EOMI, pink conjunctivae - HEAD, EARS, NOSE, MOUTH & THROAT HENMT: normocephalic/atraumatic, moist mucous membranes, normal ENT inspection, TMs normal - NECK Neck: non-tender, full range of motion, supple - RESPIRATORY Respiratory: chest non-tender, lungs clear, normal breath sounds - CARDIOVASCULAR Cardiovascular: normal peripheral pulses, regular rate, rhythm - GASTROINTESTINAL (ABDOMEN) Abdominal Exam: normal bowel sounds, non tender, soft - LYMPHATIC Lymphatic: no adenopathy - MUSCULOSKELETAL Back Exam: normal inspection Extremity: normal range of motion - SKIN Integumentary: normal color, normal turgor, warm/dry - NEUROLOGIC Neurologic: grossly normal - PSYCHIATRIC Psych/Mental Status: normal mood/affect, oriented x 3 Progress - PLAN OF CARE/RESULTS Progress/Plan/Lab Results: Vital Signs - 8 hr 09/22/18 10:36 Temperature 97.7 F Pulse Rate 87 Respiratory Rate 19 Blood Pressure 122/66 O2 Sat by Pulse Oximetry 98 Laboratory Results - last 24 hr 06/07/19 10:49 POC Glucose 98 Orders Category Date Time Status CHEST-2 VIEWS [RAD] Stat Exams 09/22/18 10:55 Ordered ALBUMIN [CHEM] Stat Lab 09/22/18 11:01 Uncollected CBC WITH ELECTRONIC DIFF [HEME] Stat Lab 09/22/18 10:53 Uncollected COMPREHENSIVE METABOLIC PANEL [CHEM] Stat Lab 09/22/18 10:53 Uncollected MAGNESIUM [CHEM] Stat Lab 09/22/18 10:53 Uncollected PRO B-NATRIURETIC PEPTIDE Stat Lab 09/22/18 11:01 Ordered UA NIMS W/REFLEX CULT [URINALYSIS] Stat Lab 09/22/18 10:53 Uncollected Family is requesting admission due to ongoing weakness, failure to thrive, and inability to perform ADLS. They request rehab placement Result Diagrams: 09/22/18 11:20 09/22/18 11:20 - CONSULTS/PCP/HOSPITALIST Notification #1 *Consult/PCP/Hospitalist*: SONNY Wu Time Discussed: 12:40 Reason/Comments: FTT, weakness, Rehab placement Consult Disposition: Admit Departure - Departure Date of Disposition Decision: 09/22/18 Time of Disposition Decision: 12:44 DIAGNOSIS: Adult failure to thrive, Weakness Disposition: ADMITTED INPATIENT 09 Certified Medical Emergency: Emergent Condition: Critical Additional Freetext Instructions: ED Follow Up Instructions: You have been treated by a care provider in the Emergency Department. These instructions are being provided to you so you can have an understanding of how to care for yourself upon discharge. Upon discharge from the Emergency Department, you are responsible for making arrangements for follow-up care by a physician of your choice. Take all prescribed medications as directed. Return to the Emergency Department immediately for any new or worsening symptoms. You may call the Physician Referral phone number at [phone] to obtain a list of Physicians who are taking new patients. Referrals and Follow-Ups: Elias Whitmore MD [Primary Care Provider] - - Critical Care Note This patient required my direct & personal management of CC.: No Attestation - Physician/ RADHA Attestation Patient care was provided by Advanced Practice Provider:: Yes Advanced Practice Provider:: Andreas Antonio Advanced Practice Provider documentation review:: The Mid-level provider documentation, treatment plan and medical decision making was reviewed by the physician who agrees with all treatment and medical decision making by the MLP. The physician spent face to face time with patient:: No Advanced Practice Provider documentation review:: Supervising physician onsite and consulted in the evaluation and care of this patient. The physician did not have a face to face encounter with the patient.
--- NOTE | 2018-09-22 11:47 | Diag Imaging Result Doc PS360 ---
CHEST-2 VIEWS - 09/22/2018 INDICATION: weakness COMPARISON: 09/20/2018 FINDINGS: Lung volumes are severely low. Stable left-sided pacemaker. Heart size remains top normal. No infiltrates or edema. No pneumothorax or pleural effusion. IMPRESSION: Severely low lung volumes. Electronically signed by Jian Reeves 09/22/2018 11:45 AM
[2018-09-22 11:53] LABS: ALB/GLOB RATIO 1.2; ALBUMIN 4.3 g/dL (3.5-5.0); CALCIUM 10.9 mg/dL (8.8-10.2); CREATININE 2.6 mg/dL (0.5-0.9); MAGNESIUM 2.2 mg/dL (1.5-2.7); TOTAL BILIRUBIN 0.68 mg/dL (0.20-1.00); TOTAL PROTEIN 7.8 g/dL (6.3-8.3)
[2018-09-22 11:57] LABS: BASO# 0.05 X1000 (0.0-0.2); BASO% 0.6 % (0.0-0.8); EOS# 0.47 X1000 (0.0-0.7); EOS% 5.2 % (0.0-10.0); HEMATOCRIT 33.9 % (37.0-47.0); HEMOGLOBIN 11.2 g/dL (12.0-16.0); IMM GRAN# 0.06 X1000 (0.0-0.04); IMM GRAN% 0.7 % (0.0-0.5); LYMPH# 0.82 X1000 (1.2-3.4); LYMPH% 9.1 % (20.5-51.1); MCH 28.4 PG (27-31); MCV 85.8 FL (81-99); MONO# 1.08 X1000 (0.11-0.59); MPV 11.5 FL (7.4-10.4); NEUT# 6.53 X1000 (1.4-6.5); NEUT% 72.4 % (42.2-75.2); PLT 273 X1000 (130-400); RBC 3.95 XMIL (4.2-5.4); RDW 14.9 % (11.5-14.5); WBC 9.01 X1000 (4.8-10.8)
[2018-09-22 12:00] LABS: URINE SOURCE CLEAN CATCH
[2018-09-22 12:09] LABS: BILIRUBIN URINE NEGATIVE (NEGATIVE); BLOOD URINE NEGATIVE (NEGATIVE); COLOR YELLOW; GLUCOSE URINE NEGATIVE (NEGATIVE); KETONE URINE NEGATIVE (NEGATIVE); LEUKOCYTES URINE NEGATIVE (NEGATIVE); NITRITE URINE NEGATIVE (NEGATIVE); PH URINE 5.5; PROTEIN URINE NEGATIVE (NEGATIVE); SP GRAVITY URINE 1.012; TURBIDITY URINE CLEAR (CLEAR); UROBILINOGEN URINE NORMAL (NORMAL)
[2018-09-22 12:10] LABS: UR EPITHELIAL CELLS <10 /HPF (<10); URINE BACTERIA NEGATIVE /HPF; URINE RBC <10 /HPF (<10); URINE WBC <10 /HPF (<10)
[2018-09-22] MEDS ORDERED: NS 500 ML IV ONE (12:20)
[2018-09-22 14:01] LABS: CK INDEX 2.8 (0.0-2.5); CK-MB 9.91 ng/mL (0.0-5.0)
--- NOTE | 2018-09-22 14:04 | EKG Report ---
Test Performed on : 09/22/2018 10:49:29 AM Test Reason : ED. NO order in [place] Blood Pressure : / mmHG Vent. Rate : 090 BPM Atrial Rate : 090 BPM P-R Int : 200 ms QRS Dur : 130 ms QT Int : 394 ms P-R-T Axes : 023 001 -23 degrees QTc Int : 481 ms Normal sinus rhythm. Right bundle branch block T wave abnormality, consider inferolateral ischemia Abnormal ECG When compared with ECG of 14-SEP-2018 19:38, (Unconfirmed) Sinus rhythm. has replaced Electronic atrial pacemaker Vent. rate has increased BY 30 BPM Unconfirmed Result
--- NOTE | 2018-09-22 15:06 | HISTORY AND PHYSICAL ---
DATE: 09/22/2018 HISTORY OF PRESENT ILLNESS: This is a 77-year-old. She reports that she thinks about 3 weeks ago, her son thinks it has been going on longer, she has noticed weakness. She is falling more, decreased appetite, and she is not sure if she has had any weight loss or not but she does feel like her appetite is declined and definitely weaker. PAST MEDICAL HISTORY: 1. Chronic lymphedema. I think she has chronic venous insufficiency. 2. Congestive heart failure, suspect this is systolic. 3. COPD. 4. Tachybrady syndrome. She is status post pacemaker placement. 5. Hypertension. 6. Hypothyroidism. 7. History of gout. 8. She has had some vertigo. She is on Pradaxa. PAST SURGICAL HISTORY: 1. Right knee replacement, total knee arthroplasty. 2. Hysterectomy. 3. Pacemaker placement. 4. Cataract removal. SOCIAL HISTORY: The patient lives alone. No history of alcohol or tobacco or illicit drugs. ALLERGIES: No known drug allergies. She denies fever or chills or cough, sputum production. No purulent sputum. No pleuritic chest pain. No abdominal pain. No change in bowels or urinary habits. No neck pain. No change in visual or hearing acuity. Neurologic: No neurologic changes, nothing focal other than her legs seem very weak especially at the ankles. No new rashes. No new joint pain. PHYSICAL EXAMINATION: VITAL SIGNS: Temperature 97.7, pulse 71, respirations 19, blood pressure 122/66. HEENT: Pupils are equal. NECK: No distended neck veins. CVP less than 6 cm. LUNGS: Clear anterior and posterior. CARDIOVASCULAR EXAM: Regular rhythm and rate without murmur or S3. ABDOMEN: Soft. SKIN: Warm and dry. EXTREMITIES: She has really no pitting edema. There is I think trace edema from her ankle to mid vyas. She has an anterior scar on the right leg from her total knee arthroplasty. She has been getting I think wraps and therapy for her chronic lymphedema. No sign of skin breakdown. LABORATORY: White count 9010, hematocrit 33, hemoglobin 11, MCV is 85. Sodium of 139, potassium 5.0, chloride 105, BUN 59, creatinine 2.6, blood sugar 91, AST is 20, ALT is 11. Her CK was 354. Troponin 0.038. ProBNP 675. Albumin 4.3. Urinalysis was unremarkable. Chest x-ray: Severely low lung volumes but no sign of infiltrates. ASSESSMENT AND PLAN: 1. General weakness and decreased appetite. I am not sure about weight, whether she has had any weight loss or not, she is not sure either. I am going to check her thyroid and B12 and folate. We will check serial cardiac enzymes. I will check an a.m. cortisol level and see how we do. 2. Creatinine is 2.6 compared to previous creatinine back in August of this it was 1.8 and back in July was 1.0. I know they are diuresing her because of lymphedema and I wonder if she is prerenal, so I am going to give her back some fluids with normal saline. I will run it at 75 mL/hour and follow her renal function closely. Electrolytes look good. 3. History of primary hypothyroidism, so we will check thyroid functions. 4. She has a history of congestive heart failure. Looking back, see if we have it, here is an echocardiogram that was done 01/22/2018, left ventricular function was hyperdynamic with ejection fraction of 80%. She has mild degree of left ventricular hypertrophy, left atrium was moderately dilated, pulmonic systolic pressures were 100-105 indicating severe pulmonary hypertension, so I suspect that we have her a little bit volume depleted in the face of pretty severe pulmonary hypertension. So, we will give her back some normal saline. I am going to watch her blood pressures. PRESENT MEDICATION: She is on Pradaxa 75 mg b.i.d., Cartia 240 mg a day, Lasix 40 mg a day which I am going to hold her Lasix. She is getting iron plus Carbinol, ascorbic acid 1 tablet daily. I assume this is for microcytic anemia, Synthroid 75 mcg a day. She takes Antivert for her vertigo, Singulair 10 mg daily, and she is on theophylline ER 300 mg daily. cc: Duglas Crum MD
[2018-09-22] MEDS ORDERED: ANTIVERT PO PRN (15:39)
[2018-09-22] MEDS ORDERED: TYLENOL PO PRN ×2 (15:39)
[2018-09-22] MEDS: NS 1,000 ML IV SCH (17:40)
[2018-09-22] MEDS: NORCO-5 PO PRN (19:58)
[2018-09-22] MEDS: PRADAXA PO SCH (21:48)
[2018-09-23] MEDS: DUONEB (A & A) INH PRN ×5 (00:41→19:29)
[2018-09-23] MEDS: ZOFRAN IV PRN (02:00)
[2018-09-23 05:41] LABS: BASO# 0.03 X1000 (0.0-0.2); BASO% 0.4 % (0.0-0.8); EOS# 0.71 X1000 (0.0-0.7); EOS% 9.5 % (0.0-10.0); HEMATOCRIT 31.1 % (37.0-47.0); IMM GRAN# 0.06 X1000 (0.0-0.04); IMM GRAN% 0.8 % (0.0-0.5); LYMPH# 0.61 X1000 (1.2-3.4); LYMPH% 8.1 % (20.5-51.1); MCH 27.9 PG (27-31); MCHC 32.2 g/dL (33-37); MCV 86.9 FL (81-99); MONO# 1.01 X1000 (0.11-0.59); MONO% 13.5 % (1.7-9.3); MPV 10.3 FL (7.4-10.4); NEUT# 5.08 X1000 (1.4-6.5); NEUT% 67.7 % (42.2-75.2); PLT 217 X1000 (130-400); RBC 3.58 XMIL (4.2-5.4)
[2018-09-23 05:59] LABS: INR 1.71; PROTIME 21.4 Seconds (11.0-16.0)
[2018-09-23 06:01] LABS: PTT 81.5 Seconds (22.3-41.8)
[2018-09-23] MEDS: SYNTHROID PO SCH (06:10)
[2018-09-23] MEDS: NS 1,000 ML IV SCH ×2 (06:10→19:38)
[2018-09-23 06:13] LABS: ALB/GLOB RATIO 1.7; ALBUMIN 3.9 g/dL (3.5-5.0); CALCIUM 9.6 mg/dL (8.8-10.2); CREATININE 1.6 mg/dL (0.5-0.9); POTASSIUM 4.9 mmol/L (3.5-5.1); TOTAL BILIRUBIN 0.44 mg/dL (0.20-1.00); TOTAL PROTEIN 6.2 g/dL (6.3-8.3)
[2018-09-23] MEDS: CARDIZEM CD PO SCH (08:16)
[2018-09-23] MEDS: PRADAXA PO SCH ×2 (08:16→21:09)
[2018-09-23] MEDS: SINGULAIR PO SCH (08:16)
[2018-09-23] MEDS: NORCO-5 PO PRN ×2 (08:16→14:44)
[2018-09-23] MEDS: ZYLOPRIM PO SCH (08:16)
[2018-09-23] MEDS: ICAR-C PO SCH (08:16)
[2018-09-23] MEDS: CALTRATE 600 + D PO SCH (08:16)
[2018-09-23] MEDS: THEO-24 PO SCH (08:17)
[2018-09-24] MEDS: NORCO-5 PO PRN ×2 (02:20→09:40)
[2018-09-24] MEDS: SYNTHROID PO SCH (06:29)
[2018-09-24] MEDS: ICAR-C PO SCH (08:33)
[2018-09-24] MEDS: PRADAXA PO SCH ×2 (08:33→21:15)
[2018-09-24] MEDS: ZYLOPRIM PO SCH (08:33)
[2018-09-24] MEDS: SINGULAIR PO SCH (08:33)
[2018-09-24] MEDS: THEO-24 PO SCH (08:33)
[2018-09-24] MEDS: CARDIZEM CD PO SCH (08:34)
[2018-09-24] MEDS: CALTRATE 600 + D PO SCH (08:34)
[2018-09-24] MEDS: DUONEB (A & A) INH PRN ×4 (09:16→19:35)
[2018-09-24] MEDS: NS 1,000 ML IV SCH ×2 (09:36→22:30)
--- NOTE | 2018-09-24 15:17 | PROGRESS NOTE ---
DATE: 09/23/2018 Ms. Osborn was put in on 09/22. She has had some cramping in her back mainly at nighttime. She has remained afebrile, pulse 60, respirations 19, blood pressure 149/56. Pupils equal. Lungs are clear. She has nasal cannula on. Regular rhythm and rate. Monitor shows sinus rhythm. Abdomen soft. Skin is warm and dry. No pedal edema. ASSESSMENT AND PLAN: 1. Generalized weakness, decreased appetite. I would try to eliminate some medicines and checking her B12 and folate. Her electrolytes look good. Sodium 141, potassium 4.9, chloride 108, BUN 41, creatinine 1.6 it has come down from 2.6. Liver enzymes unremarkable. Thyroid TSH 1.77. Troponin 0.038 then 0.024 but not complaining of any chest pain. CK was 354 initially so we are going to start some physical therapy. 2. Acute kidney injury suspect mainly prerenal. She seemed a little bit dehydrated though this has improved with fluids. 3. History of hypothyroidism. Appears to be euthyroid. Continue present Synthroid. 4. History of congestive heart failure by her report. Looking at echocardiogram she has hyperdynamic ventricle so she may have some diastolic dysfunction but does not have severe systolic dysfunction. PRESENT ORDERS: Calcium carbonate 1 a day, Pradaxa 75 mg b.i.d., diltiazem CD 240 mg a day, iron carbonyl ascorbic acid 1 a day, Synthroid 75 mcg a day, Singulair 10 mg a day, normal saline 75 mL an hour, theophylline ER 300 mg daily. cc: Duglas Crum MD
--- NOTE | 2018-09-24 15:23 | PROGRESS NOTE ---
DATE: 09/24/2018 SUBJECTIVE: Ms. Osborn is sitting up in a chair. She is feeling more comfortable, breathing comfortably. She says she feels better. She has had some muscle spasm in her back, and is requesting muscle relaxer. She is also requesting something for bowel movement. She feels a little stronger. OBJECTIVE: Vital Signs: Temp 98.1 degrees, pulse 72, respirations 17, blood pressure 123/44. HEENT: Pupils are equal round. Lungs: Clear in all lung weber. Cardiovascular: Regular rhythm and rate without murmur or S3. Abdomen: Soft. Skin: Warm and dry. LABORATORY DATA: Reviewed from 09/23/2018, yesterday. White count 7500, hematocrit 31, platelet count 217,000. Sodium 141, potassium 4.9, chloride 108, BUN 41, creatinine 1.6, which has come down from 2.6. ASSESSMENT AND PLAN: 1. Admitted with general weakness. Appetite is poor. She complains of being constipated. In checking her lab, her thyroid is normal. Will check B12 and folate, I do not see that, please, with creatinine coming down to 1.6. 2. She said she had congestive heart failure, but her echocardiogram shows that she has got a left ventricular ejection fraction of 80%. She has a hyperdynamic left ventricle. 3. Primary hypothyroidism. Appears to be euthyroid. 4. Constipation. Will order her some milk of magnesia, which she says works good for her. I am going to check electrolytes again tomorrow, check a chest x-ray, check B12 and folate, T4 and TSH in the morning as well. cc: Duglas Crum MD
[2018-09-24] MEDS: MILK OF MAGNESIA PO SCH (16:43)
[2018-09-24] MEDS: FLEXERIL PO SCH (21:15)
[2018-09-25] MEDS: NORCO-5 PO PRN ×3 (03:34→20:36)
[2018-09-25 05:51] LABS: BASO# 0.04 X1000 (0.0-0.2); BASO% 0.6 % (0.0-0.8); EOS# 0.83 X1000 (0.0-0.7); EOS% 11.7 % (0.0-10.0); HEMATOCRIT 29.5 % (37.0-47.0); HEMOGLOBIN 9.2 g/dL (12.0-16.0); IMM GRAN% 1.4 % (0.0-0.5); LYMPH# 0.89 X1000 (1.2-3.4); LYMPH% 12.6 % (20.5-51.1); MCH 27.7 PG (27-31); MCHC 31.2 g/dL (33-37); MCV 88.9 FL (81-99); MONO# 0.88 X1000 (0.11-0.59); MONO% 12.4 % (1.7-9.3); MPV 10.9 FL (7.4-10.4); NEUT# 4.33 X1000 (1.4-6.5); NEUT% 61.3 % (42.2-75.2); PLT 201 X1000 (130-400); RBC 3.32 XMIL (4.2-5.4); RDW 15.3 % (11.5-14.5); WBC 7.07 X1000 (4.8-10.8)
[2018-09-25] MEDS: SYNTHROID PO SCH (06:13)
[2018-09-25 06:19] LABS: AGAP 10; ALB/GLOB RATIO 1.1; ALBUMIN 3.3 g/dL (3.5-5.0); ALKALINE PHOSPHATASE 63 U/L (32-104); BUN 20 mg/dL (8-22); CALCIUM 9.1 mg/dL (8.8-10.2); CHLORIDE 110 mmol/L (98-107); COSMO 284; ESTIMATED GFR > 60; GLUCOSE 102 mg/dL (70-104); GOT 9 U/L (10-30); GPT 7 U/L (10-36); POTASSIUM 4.7 mmol/L (3.5-5.1); SODIUM 141 mmol/L (136-145); TCO2 21 mmol/L (25-35); TOTAL BILIRUBIN 0.31 mg/dL (0.20-1.00); TOTAL PROTEIN 6.2 g/dL (6.3-8.3)
[2018-09-25] MEDS: CALTRATE 600 + D PO SCH (08:09)
[2018-09-25] MEDS: MILK OF MAGNESIA PO SCH (08:10)
[2018-09-25] MEDS: SINGULAIR PO SCH (08:10)
[2018-09-25] MEDS: PRADAXA PO SCH ×2 (08:10→20:36)
[2018-09-25] MEDS: ICAR-C PO SCH (08:10)
[2018-09-25] MEDS: CARDIZEM CD PO SCH (08:10)
[2018-09-25] MEDS: ZYLOPRIM PO SCH (08:11)
[2018-09-25] MEDS: THEO-24 PO SCH (08:11)
[2018-09-25] MEDS: DUONEB (A & A) INH PRN ×2 (08:39→14:10)
--- NOTE | 2018-09-25 09:26 | EKG Report ---
Test Performed on : 09/23/2018 06:21:49 AM Test Reason : chest pain Blood Pressure : / mmHG Vent. Rate : 077 BPM Atrial Rate : 077 BPM P-R Int : 174 ms QRS Dur : 144 ms QT Int : 416 ms P-R-T Axes : 039 -06 -25 degrees QTc Int : 470 ms Normal sinus rhythm. Right bundle branch block Abnormal ECG When compared with ECG of 22-SEP-2018 10:49, (Unconfirmed) T wave inversion less evident in Inferior leads Confirmed by Radames GARCÍA, Duglas Solano ([id number]) on 09/26/2018 9:59:44 AM
--- NOTE | 2018-09-25 09:47 | PROGRESS NOTE ---
DATE: 09/25/2018 SUBJECTIVE: Ms. Osborn says she feels a little better. She has eaten. Her bowels have not moved yet but she is taking some milk of magnesia. OBJECTIVE: Temperature 98.7 degrees, pulse 64, respirations 15, blood pressure 106/37. Pupils are equal and round. Lungs are clear in all lung weber. Cardiovascular Examination: Regular rhythm and rate without murmur or S3. Urine output 1000 mL. ASSESSMENT AND PLAN: 1. Admitted with general weakness and poor appetite and constipated. Supplementing B12 and folate. Gave her a little fluids. Her creatinine seemed to come down. I think she was a little bit dry. 2. History of congestive heart failure but previous echocardiogram showed normal left ventricular function so no systolic dysfunction. Suspect she had some diastolic dysfunction. 3. Primary hypothyroidism. She is euthyroid. 4. Constipation. We will see how we do walking around and physical therapy. REVIEW OF HER ORDERS: At the present time, she wanted me to start a muscle relaxer. I will start one just in the evening time. Flexeril 10 mg at bedtime. She has a history of gout. She is on Zyloprim 300 mg a day, Pradaxa 75 mg b.i.d., and Cardizem CD 240 mg a day. She has iron with ascorbic acid 1 a day, Synthroid 75 mcg a day, getting normal saline at 75 mL an hour, and she gets theophylline ER 300 mg a day. She has a history of chronic lymphedema and venous insufficiency. I think she has some diastolic dysfunction or diastolic congestive heart failure with underlying hypertension and she has a pacemaker. She has been on anticoagulant with Pradaxa. We will continue that. See how we do with physical therapy. Hopefully, she can go home soon. cc: Duglas Crum MD
[2018-09-25] MEDS: NS 1,000 ML IV SCH (13:28)
[2018-09-25] MEDS: FLEXERIL PO SCH (20:36)
[2018-09-26] MEDS: NS 1,000 ML IV SCH ×2 (01:40→10:52)
[2018-09-26] MEDS: SYNTHROID PO SCH ×2 (04:39→06:13)
[2018-09-26] MEDS: NORCO-5 PO PRN ×2 (04:39→10:38)
[2018-09-26] MEDS ORDERED: DULCOLAX PR PRN (08:28)
[2018-09-26] MEDS: CARDIZEM CD PO SCH (08:52)
--- NOTE | 2018-09-26 08:52 | PROGRESS NOTE ---
DATE: 09/26/2018 SUBJECTIVE: This is per the Hospitalist. She is doing better. She feels a little stronger. I think she is ready to go to rehab. She would like to go to [facility] and continue to work on her strength. Her breathing is comfortable. She is still on nasal cannula. OBJECTIVE: Vital signs: Temperature 98.5 degrees, pulse 60, respirations 17, blood pressure 135/48. HEENT: Pupils are equal and round. Lungs: Clear in all lung weber. Cardiovascular: Regular rhythm and rate without murmur or S3. Abdomen: Soft. Skin: Warm and dry. ASSESSMENT AND PLAN: 1. Admitted with general weakness, poor appetite, constipation. She is still constipated. I am going to add lactulose and MiraLAX to her regimen and we are going to see if we can find a place for rehab. 2. History of congestive heart failure. Echocardiogram shows normal left ventricular function so I think this is predominantly diastolic dysfunction, and she has no pedal edema at this time. 3. Primary hypothyroidism. Appears to be euthyroid. 4. Constipation. I am going to add lactulose and MiraLAX. REVIEW OF ORDERS: Looking over her regimen, I will get Social Service to see if we can find a rehab facility, continue physical therapy. cc: Duglas Crum MD
[2018-09-26] MEDS: ICAR-C PO SCH (08:53)
[2018-09-26] MEDS: CALTRATE 600 + D PO SCH (08:54)
[2018-09-26] MEDS: MILK OF MAGNESIA PO SCH (08:55)
[2018-09-26] MEDS: ZYLOPRIM PO SCH (08:56)
[2018-09-26] MEDS: SINGULAIR PO SCH (08:56)
[2018-09-26] MEDS: PRADAXA PO SCH (08:57)
[2018-09-26] MEDS: THEO-24 PO SCH (08:57)
[2018-09-26] MEDS ORDERED: MIRALAX PO SCH (09:00)
[2018-09-26] MEDS ORDERED: LACTULOSE PO SCH (09:00)
[2018-09-26 11:48] VITALS: BP 179/51
[2018-09-26] MEDS: ZOFRAN IV PRN (12:05)
--- NOTE | 2018-09-26 12:30 | DISCHARGE SUMMARY ---
ADMISSION DATE: 09/22/2018 DISCHARGE DATE: 09/26/2018 HISTORY OF PRESENT ILLNESS: She is a patient of Dr. Elias Whitmore. A 77-year-old who reports that for about 3 weeks maybe (her son feels like it has been a little longer), just more weak and falling more, not able to get around. She denies any knowledge of weight loss or fever or chills, or focal neurologic changes. PAST MEDICAL HISTORY: 1. Chronic lymphedema. She has chronic venous insufficiency secondary probably to obesity. 2. Congestive heart failure. Suspect this is diastolic. Looked at her echocardiogram. She has good ejection fraction so diastolic congestive heart failure. 3. COPD. 4. Tachybrady syndrome, status post pacemaker placement. 5. Hypertension. 6. Primary hypothyroidism. 7. History of gout. 8. She has had some vertigo in the past. 9. She is on Pradaxa, I believe for a past history of DVT. PAST SURGICAL HISTORY: 1. Right knee replacement, total knee arthroplasty. 2. Hysterectomy. 3. Pacemaker placement. 4. Cataract removal. ADMISSION DIAGNOSES: 1. General weakness, decreased appetite. We did check B12 and folate, and supplemented those. Her B12 was 1954 and her folate was a little low at 6.0. 2. Her creatinine was 2.6 when she came in. I think this was probably representing some prerenal. We did give her some fluid and it came down to 1.6. I think this does represent a little chronic kidney disease, probably stage 2. Her glomerular filtration rate was calculated at 38 so maybe stage 3A. 3. History of primary hypothyroidism. Appears to be euthyroid and she is on Synthroid. Currently, she is taking levothyroxine 75 mcg daily. 4. Diastolic dysfunction. I looked back at her echocardiograms and she has a mild degree of left ventricular hypertrophy and I did notice her pulmonic, systolic pressures were 100 so she does have pulmonary hypertension as well. DISCHARGE DIAGNOSES: 1. General weakness, deconditioning. I think it is largely one of the reasons for her weakness. She does have pulmonary hypertension. She does have venous insufficiency so she responded to physical therapy and I think she would benefit from going to rehab. We are planning on sending her to rehab on 09/26/2018. 2. Creatinine came down to 1.6. I think she does have chronic kidney disease stage 3A but her glomerular filtration rate did improve. 3. History of primary hypothyroidism. She is on Synthroid. Normal thyroid, appears to be euthyroid. 4. Combination of diastolic dysfunction, obesity, chronic venous insufficiency, pulmonary hypertension. I think it causes her feet to swell. I have encouraged her to try and pursue weight loss and try and increase her work capacity and her strength. We will plan to send her to [facility] or [facility]. DISCHARGE MEDICATIONS: She will be on Caltrate 600 plus D one a day. We are giving her Flexeril 10 mg at night because she does have some muscle spasm, mostly at night. Continue Pradaxa 75 mg b.i.d., Cardizem CD 240 mg a day. She has a [place] 5 p.r.n. pain, Icar-C one a day. She does have a hemoglobin that is stable. Hemoglobin is 9.2, hematocrit is 29, with an MCV of 88, and we are giving her B12 and folate. Allopurinol for history of gout at 300 mg daily, Caltrate 600 plus D one a day, Flexeril 10 mg at bedtime, Pradaxa 75 mg b.i.d., Cardizem CD 240 mg daily, and [place] 5 (she can have one q.6 hours p.r.n. pain, Icar one a day, lactulose 30 mL b.i.d., Synthroid 75 mcg a day, Antivert as needed 12.5 mg t.i.d. as needed, Singulair 10 mg a day, and MiraLAX 17 g twice a day. She had complained of constipation. Theophylline, [place]-24 300 mg daily. She takes milk of magnesia every day and I started her on some lactulose to kind of help with her bowels as well. We can back down on that as needed. cc: Duglas Crum MD
[2018-09-26] MEDS: DUONEB (A & A) INH PRN (16:22)
== END 2018-09-26 16:42 | DRG 948 ==
LOC: SUPCPDRO → ED 10:30 → SUATTDRO 14:32 → EDIPHOLD 14:32 → 3S 16:54
PROVIDERS: ADMIT Emergency Medicine; ATTEND Emergency Medicine
CPT/HCPCS: 71010; 71020; 71045; 71046; 73502; 73562; 80053; 81001; 82550; 82553; 82607; 82746; 82948; 83735; 83880; 84443; 84484; 85025; 85610; 85730; 93005; 93010; 94640; 94761; 96360; 97110; 97162; 97530; 99283; 99285; A9270; J2405; J7030; J7040; XXXXX